=== PATIENT | female | born 1990 | race Caucasian/White ===

== ENCOUNTER 2023-05-25 08:35 | Day surgery (SDC) | payer OTHER ==
[2023-05-25 09:26] LABS: HEMATOCRIT 41.2 % (36.0-45.00); HEMOGLOBIN 13.5 g/dL (12.0-15.00); MEAN CELL VOLUME 86.6 fL (80.00-100.00); MEAN CORPUSCULAR HEMOGLOBIN 28.5 pg (27.00-32.0); MEAN CORPUSCULAR HGB CONC 32.9 g/dl (32.0-36.0); PLATELET COUNT 194 K/uL (150-450); RED BLOOD COUNT 4.75 M/uL (4.00-6.00); RED CELL DISTRIBUTION WIDTH 15.2 % (11.5-14.5)
[2023-05-25] MEDS ORDERED: LEVOTHYROXINE25 MCG PO (09:52)
[2023-05-25] MEDS ORDERED: ZANTAC (09:53)
[2023-05-25] MEDS ORDERED: [UNRECOGNIZED DRUG - OTHER] (09:53)
[2023-05-25] MEDS ORDERED: OMEPRAZOLE (09:53)
[2023-05-25 10:05] LABS: PH,URINE 6.5 (5.0-8.0); URINE APPEARANCE Clear; URINE BILIRRUBIN Negative (NEGATIVE); URINE BLOOD Small; URINE COLOR Yellow; URINE GLUCOSE Negative (NEGATIVE); URINE LEUKOCYTE Negative; URINE NITRATE Negative; URINE PROTEIN Trace (NEGATIVE); URINE UROBILINOGEN 0.2 E.U./dl
[2023-05-25 10:09] LABS: URINE BACTERIA 79.3 uL (0.0-1933); URINE EPITHELIAL CELLS 6.9 uL (0.0-38.8); URINE RBC 89.5 uL (0.0-20.8); URINE WBC 4.3 uL (0.0-23.2)
[2023-05-25 10:10] LABS: INR 0.94; PARTIAL THROMBOPLASTIN TIME 28.8 SECONDS (22.0-34.0); PROTHROMBIN TIME 9.9 SECONDS (9.0-11.5)
[2023-05-25] MEDS ORDERED: CEFAZOLIN SODIUM 1,000 MG VIAL ONE (18:14)
[2023-05-25] MEDS ORDERED: CHLORHEXIDINE GLUCONATE 120 ML BOTTLE TOP ONE ×2 (18:14→22:30)
[2023-05-25] MEDS ORDERED: MISOPROSTOL 100 MCG TABLET ONE ×2 (21:18→21:20)
[2023-05-25] MEDS ORDERED: CEFAZOLIN SODIUM 1,000 MG VIAL IV ONE (22:30)
[2023-05-25] MEDS ORDERED: METHYLERGONOVINE MALEATE 0.2 MG/ML AMPUL IM ONE (22:30)
[2023-05-25] MEDS ORDERED: MISOPROSTOL 100 MCG TABLET RECTAL ONE (22:30)
[2023-05-25] MEDS ORDERED: RINGERS SOLUTION,LACTATED 1,000 ML IV SCH (22:30)
== END 2023-05-26 03:50 | disposition home or self-care (01) ==
LOC: CIR.AMB 08:35
PROVIDERS: ATTEND Obstetrics & Gynecology
DX: O02.1 Missed abortion (principal); O72.2 Delayed and secondary postpartum hemorrhage; Z91.041 Radiographic dye allergy status